=== PATIENT | male | born 2000 | race Caucasian/White ===

== ENCOUNTER 2018-10-13 17:52 | Emergency (ER) | payer OTHER ==
[2018-10-13] MEDS ORDERED: LIDOCAINE 1% 10 ML VIAL INJ ONE (18:06)
[2018-10-13] MEDS ORDERED: CHLORHEXIDINE GLUCONATE 4 % 15 ML UD TOP ONE (18:07)
--- NOTE | 2018-10-13 18:59 | ED.PDOC ---
History of Present Illness - General Chief Complaint: Laceration Stated Complaint: head laceration Time Seen by Provider: 10/13/18 18:56 Source: patient, RN notes reviewed Exam Limitations: no limitations Additional Information: HE INJURED HIS HEAD WITH A HOME MADE PINATA, NO LOC NOW SUSTAINS A STELLATE LACERATION TO THE FRONTAL REGION OF THE SKULL - History of Present Illness Timing/Duration: 1-3 hours Severity: mild Improving Factors: nothing Worsening Factors: nothing Associated Symptoms: denies symptoms Allergies/Adverse Reactions: Allergies NO KNOWN ALLERGY Allergy (Unverified 06/07/14 17:15) Home Medications: Ambulatory Orders Tramadol HCl [Ultram] 50 mg PO 15 PRN #15 tab 06/07/14 Review of Systems - Review of Systems Constitutional: States: no symptoms reported EENTM: States: no symptoms reported Respiratory: States: no symptoms reported Cardiology: States: no symptoms reported Gastrointestinal/Abdominal: States: no symptoms reported Genitourinary: States: no symptoms reported Musculoskeletal: States: no symptoms reported Skin: States: other - LACERATION TO THE SCALP Neurological: States: no symptoms reported Endocrine: States: no symptoms reported Hematologic/Lymphatic: States: no symptoms reported Past Medical History (General) - Patient Medical History Hx Cardiac Disorders: No Hx Diabetes: No Surgical History: no surgical history - Vaccination History Hx Tetanus, Diphtheria Vaccination: Yes Family Medical History - Family History Father Family History: No Known Physical Exam - Physical Exam General Appearance: Alert, Well Developed, Well Groomed, Well Hydrated, Well Nourished Eye Exam: bilateral normal Ears, Nose, Throat: hearing grossly normal Neck: non-tender, full range of motion, supple Respiratory: chest non-tender, lungs clear, normal breath sounds Cardiovascular/Chest: normal peripheral pulses, regular rate, rhythm, no edema, no gallop, no JVD Peripheral Pulses: radial,right: 2+, radial,left: 2+ Gastrointestinal/Abdominal: normal bowel sounds Neurologic: transition assistant II-XII nml as tested, normal mood/affect, oriented x 3 Skin Exam: other - 4 CM LAC TO THE FRONTAL SCALP REGION Procedures - Laceration/Wound Repair Frontal Wound Length (cm): 4 Wound's Depth, Shape: irregular, stellate Wound Explored: no foreign body removed Betadine Prep?: No - HIBICLENS Anesthesia: 1% Lidocaine Volume Anesthetic (cc's): 4 Wound Debrided: minimal Wound Repaired With: sutures Suture Size/Type: 4:0, prolene Number of Sutures: 4 Layer Closure?: No Sterile Dressing Applied?: Yes Splint Applied?: No Sling Applied?: No Departure - Departure Clinical Impression: Laceration of scalp without foreign body Qualifiers: Encounter type: initial encounter Qualified Code(s): S01.01XA - Laceration without foreign body of scalp, initial encounter Time of Disposition: 19:02 Disposition: Discharge to Home or Self Care Condition: Good Departure Forms: ED Discharge - Pt. Copy, Patient Portal Self Enrollment Instructions: DI for Laceration Repair, How to Care for a Laceration After Repair Diet: resume usual diet Activity: increase activity as tolerated Referrals: CIRO MCNAIR MD [Primary Care Provider] - 1-2 Weeks Home Medications: Ambulatory Orders Tramadol HCl [Ultram] 50 mg PO 15 PRN #15 tab 06/07/14 Additional Instructions: SUTURE REMOVAL 8 DAYS
[2018-10-13] MEDS ORDERED: TETANUS,DIPHTHERIA,PERTUSSIS 1 EA SYG IM ONE (19:00)
[2018-10-13 19:16] VITALS: BP 129/84; TEMP 97; O2SAT 98
== END 2018-10-13 19:15 | disposition home or self-care (01) ==
LOC: ER 17:52
DX: S01.01XA Laceration without foreign body of scalp, initial encounter (principal); Z23 Encounter for immunization; W22.8XXA Striking against or struck by other objects, initial encounter; Y92.9 Unspecified place or not applicable